=== PATIENT | female | born 1955 | race Caucasian/White ===

== ENCOUNTER → 2016-12-31 | Outpatient (CLI) | payer BC ==
--- NOTE | 2016-12-31 11:26 | RAD ---
Exam performed:3 views left shoulder Indication:Left shoulder pain, limited range of motion, injury. Date of service:12/31/16. Comparison:None available Findings :AP radiographs of the shoulder in internal and external rotation as well as a Y-view reveal the osseous structures to be intact and well aligned. There are degenerative changes about the acromioclavicular joint with osteophytic spurring and joint space narrowing The glenohumeral joint space is well-preserved. The articular margins are smooth. 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 No acute abnormality seen.
== END | disposition home or self-care (01) ==
LOC: DXRADRC 11:00
PROVIDERS: ATTEND Physician Assistant Medical
DX: M19.012 Primary osteoarthritis, left shoulder (principal)
CPT/HCPCS: 73030

== ENCOUNTER → 2017-10-30 | Outpatient (CLI) | payer BC ==
--- NOTE | 2017-10-30 13:53 | RAD ---
Pelvis with right hip, 3 views, 10/30/2017: HISTORY: Hip and low back pain No fracture or dislocation is identified. The hip joints are well-maintained with only minimal marginal spurring. The periarticular soft tissues are unremarkable. IMPRESSION: No acute pelvic or right hip abnormality is detected. Lumbar spine, 3 views, 10/30/2017: Comparison is made to a study from 05/30/2013. The lumbar vertebral heights are well-maintained. There are mild scattered marginal spurs. There are moderate degenerative changes involving the facet joints in the lower lumbar spine. No fracture or dislocation is identified. Aortic calcific plaquing is noted. IMPRESSION: 1. Mild to moderate scattered degenerative changes. 2. No acute bony abnormality is detected. Electronically signed by: Shawn Easton MD (10/30/2017 1:49 PM) [facility]
== END | disposition home or self-care (01) ==
LOC: PMG 08:48
PROVIDERS: ATTEND Physician Assistant Medical
DX: M47.896 Other spondylosis, lumbar region (principal); M77.8 Other enthesopathies, not elsewhere classified
CPT/HCPCS: 72100; 73502

== ENCOUNTER → 2018-04-09 | Outpatient (CLI) | payer BC ==
--- NOTE | 2018-04-09 08:58 | RAD ---
3 views left hand 04/09/2018 8:01 AM Indication: PATIENT STATES SMASHING HAND IN JANUARY, BUT REINJURING IT TWO DAYS AGO. PATIENT IS HAVING PAIN IN THE PROXIMAL INTERPHALANGEAL JOINT OF THE FIFTH DIGIT OF THE LEFT HAND. Comparison: None available Findings: There is no acute fracture or dislocation. Articular surfaces are uninterrupted and smooth. Soft tissues are unremarkable. Impression: No evidence of acute osseous abnormality. Electronically signed by: Clement Daniel MD (04/09/2018 8:54 AM) [id number]
== END | disposition home or self-care (01) ==
LOC: RAD 07:43
PROVIDERS: ATTEND Physician Assistant Medical
DX: S69.92XA Unspecified injury of left wrist, hand and finger(s), initial encounter (principal); X58.XXXA Exposure to other specified factors, initial encounter; Y93.89 Activity, other specified; Y92.89 Other specified places as the place of occurrence of the external cause; Y99.8 Other external cause status
CPT/HCPCS: 73130

== ENCOUNTER → 2018-08-20 | Outpatient (CLI) | payer BC ==
--- NOTE | 2018-08-20 16:43 | RAD ---
Cervical spine, 5 views, 08/20/2018: HISTORY: Pain There is moderate disc space narrowing throughout the mid and lower cervical spine with moderate scattered marginal spurs. No fracture or subluxation is evident. There are mild degenerative changes involving scattered facet joints bilaterally. There is mild foraminal narrowing on the left at C6-7 and on the right at C5-6 due to marginal spurring. No prevertebral soft tissue swelling is seen. IMPRESSION: 1. Moderate multilevel degenerative change in the cervical spine. 2. No acute bony abnormality is detected. Electronically signed by: Shawn Easton MD (08/20/2018 4:41 PM) [facility]
--- NOTE | 2018-08-20 16:48 | RAD ---
Thoracic spine, 3 views, 08/20/2018: HISTORY: Back pain, periscapular The thoracic vertebral heights are well-maintained. No fracture or destructive bony lesion is seen. There is minimal marginal spurring. The paraspinous soft tissues are unremarkable. IMPRESSION: No acute thoracic spine abnormality is detected. Electronically signed by: Shawn Easton MD (08/20/2018 4:45 PM) [facility]
== END | disposition home or self-care (01) ==
LOC: PMG 15:51
PROVIDERS: ATTEND Physician Assistant Medical
DX: M48.02 Spinal stenosis, cervical region (principal); M47.812 Spondylosis without myelopathy or radiculopathy, cervical region; M46.02 Spinal enthesopathy, cervical region
CPT/HCPCS: 72050; 72072

== ENCOUNTER → 2018-10-21 | Outpatient (CLI) | payer BC ==
--- NOTE | 2018-10-22 08:21 | RAD ---
EXAM: Right knee, 3 views. HISTORY: Pain. COMPARISON: None. FINDINGS: 3 views of the right knee are obtained. There is no fracture, dislocation or subluxation. There is minimal medial and patellofemoral compartment spurring. No joint effusion is seen. IMPRESSION: Minimal medial and patellofemoral compartment osteoarthritis. Electronically signed by: Mariam Rao MD (10/22/2018 8:18 AM) [id number]
== END | disposition home or self-care (01) ==
LOC: DXRAD 16:59
PROVIDERS: ATTEND Orthopaedic Surgery Sports Medicine
DX: M17.11 Unilateral primary osteoarthritis, right knee (principal)
CPT/HCPCS: 73562

== ENCOUNTER → 2019-01-27 | Outpatient (CLI) | payer BC ==
--- NOTE | 2019-01-27 15:51 | RAD ---
DATE: 01/27/2019. EXAM: MAMMO PITO SCREENING BILATERAL. HISTORY: Routine mammographic screening. COMPARISON: 03/21/2015. This study was interpreted with the benefit of Computerized Aided Detection (CAD). FINDINGS: Breast Density: SCATTERED The breast parenchyma shows scattered fibroglandular densities. Breast parenchyma level B.. The parenchymal pattern is stable. Parenchymal islands superolateral bilaterally have remotely stable correlates. Scattered calcifications are benign. There are no suspicious masses, microcalcifications or architectural distortion. BI-RADS CATEGORY: 2 BENIGN FINDING(S). RECOMMENDED FOLLOW-UP: 12M 12 MONTH FOLLOW-UP. PQRS compliance statement: Patient information was entered into a reminder system with a target due date 01/28/2020 for the next mammogram. Mammography is a sensitive method for finding small breast cancers, but it does not detect them all and is not a substitute for careful clinical examination. A negative mammogram does not negate a clinically suspicious finding and should not result in delay in biopsying a clinically suspicious abnormality. "Our facility is accredited by the [employer] Mammography Program."
== END | disposition home or self-care (01) ==
LOC: MAMMO 09:59
PROVIDERS: ATTEND Physician Assistant Medical
DX: Z12.31 Encounter for screening mammogram for malignant neoplasm of breast (principal); N64.89 Other specified disorders of breast
CPT/HCPCS: 77063; 77067

== ENCOUNTER → 2020-05-09 | Outpatient (CLI) | payer BC ==
--- NOTE | 2020-05-11 10:16 | RAD ---
DATE: 05/09/2020 10:30 AM EXAM: MAMMO PITO SCREENING BILATERAL HISTORY: Screening COMPARISON: 01/27/2019 Bilateral CC and MLO views of the breasts were performed. Bilateral breast tomosynthesis was performed in CC and MLO projections. This study was interpreted with the benefit of Computerized Aided Detection (CAD). FINDINGS: Breast Density: SCATTERED The breast parenchyma shows scattered fibroglandular densities. Breast parenchyma level B No suspicious masses, microcalcifications or architectural distortion is present to suggest malignancy in either breast. The visualized axillae are unremarkable. IMPRESSION: No mammographic evidence of malignancy. BI-RADS CATEGORY: 1 NEGATIVE RECOMMENDED FOLLOW-UP: 12M 12 MONTH FOLLOW-UP Annual screening mammography is recommended, unless clinically indicated sooner based on symptoms or change in physical exam. PQRS compliance statement: Patient information was entered into a reminder system with a target due date for the next mammogram. Mammography is a sensitive method for finding small breast cancers, but it does not detect them all and is not a substitute for careful clinical examination. A negative mammogram does not negate a clinically suspicious finding and should not result in delay in biopsying a clinically suspicious abnormality. "Our facility is accredited by the [employer] Mammography Program."
== END ==
LOC: MAMMO 10:20
PROVIDERS: ATTEND Physician Assistant Medical
DX: Z12.31 Encounter for screening mammogram for malignant neoplasm of breast (principal)
CPT/HCPCS: 77063; 77067

== ENCOUNTER → 2020-06-07 | Outpatient (CLI) | payer BC ==
--- NOTE | 2020-06-07 16:00 | RAD ---
INDICATION: Screening for osteopenia/osteoporosis. Postmenopausal evaluation. COMPARISON: None. TECHNIQUE: Bone densitometry was performed through the lumbar spine and proximal femur. IMPRESSION: Femur: BMD: 0.85 T-Score: -0.9 Range: On the border between lower limits of normal and osteopenia. Lumbar spine BMD: 1.14 T-Score: -0.4 Range: Normal World Health Organization Criteria for Bone Density: T-Score: > -1.0: Normal Range < -1.0 to -2.5: Osteopenic Range < -2.5: Osteoporotic Range Electronically signed by: Abdelrahman Ford MD (06/07/2020 3:57 PM) [id number]
== END ==
LOC: DXRAD 15:03
PROVIDERS: ATTEND Physician Assistant Medical
DX: Z00.00 Encounter for general adult medical examination without abnormal findings (principal); Z78.0 Asymptomatic menopausal state; E55.9 Vitamin D deficiency, unspecified
CPT/HCPCS: 77080

== ENCOUNTER → 2020-12-22 | Outpatient (CLI) | payer OTHER ==
--- NOTE | 2020-12-22 09:45 | RAD ---
EXAM: XR HIP_LT 2-3 VIEWS, XR FINGER(S)_LEFT 2+VIEWS_RT 12/22/2020 8:55 AM CLINICAL INDICATION: Left first digit pain. Left hip pain. COMPARISON: None TECHNIQUE: 3 views of the left. 2 views of the left hip. FINDINGS: Left thumb: No acute fracture. Alignment is normal. Joint spaces are maintained. No erosions. No soft tissue abnormality. Left hip: No acute fracture. Alignment is normal. The hip joint space is maintained. Pubic symphysis and left sacroiliac joint are normal. IMPRESSION: No acute abnormality of the left thumb or left hip. Electronically signed by: Jacqueline Guerrero MD (12/22/2020 9:42 AM) [id number]
== END ==
LOC: RAD 08:41
DX: M79.645 Pain in left finger(s) (principal); M25.552 Pain in left hip
CPT/HCPCS: 73140; 73502